=== PATIENT | female | born 2000 | race Caucasian/White ===

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

== ENCOUNTER 2019-11-08 10:16 | Emergency (ER) | payer MEDICAID, OTHER ==
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
[2019-11-08] MEDS ORDERED: LACTATED RINGERS 1,000 ML IVS ONE (11:03)
--- NOTE | 2019-11-08 11:52 | US ---
EXAM DESCRIPTION: Abdomen,Complete CLINICAL HISTORY: 19 years Female, recent splenectomy, now with abd pain. COMPARISON: None. TECHNIQUE: Multiple sonographic images of the abdomen with color Doppler analysis. FINDINGS: Liver: Liver measures 15.8 cm. Main portal vein is patent with appropriate directional flow. Biliary Tree: Gallbladder surgically absent. No intrahepatic biliary dilatation. Common bile duct diameter of 5 mm. Pancreas: Normal visualized portions of the pancreas. Spleen: Not visualized possibly consistent with patient's history of prior splenectomy Kidneys: Normal size and location without hydronephrosis. Vasculature: Unremarkable upper abdominal aorta and IVC. Abdominal cavity: No ascites. IMPRESSION: 1. No acute sonographic abnormality of the abdomen. 2. Nonvisualized spleen consistent with prior splenectomy. 3. Cholecystectomy. Electronically signed by: Delano Vanegas MD 11/08/2019 11:51 AM CDT
[2019-11-08] MEDS ORDERED: ALUM & MAG HYDROX-SIMETHICONE 30 ML, LIDOCAINE VISCOUS 2% 15 ML PO ONE ×2 (12:43)
[2019-11-08] MEDS ORDERED: FAMOTIDINE IV PREMIX 20 MG in PREMIX BAG 1 BAG IVPB ONE (12:44)
[2019-11-08] MEDS ORDERED: ALUM & MAG HYDROX-SIMETHICONE 30 ML UD ONE (12:51)
[2019-11-08] MEDS ORDERED: LIDOCAINE HCL 2% (MOUTH-THROAT) 15 ML UD ONE (12:51)
[2019-11-08] MEDS ORDERED: FAMOTIDINE IV PREMIX 50 ML IVPB ONE (12:51)
[2019-11-08 14:19] VITALS: BP 109/73; TEMP 98.9; O2SAT 98
== END 2019-11-08 14:10 | disposition home or self-care (01) ==
LOC: ER 10:16
DX: O26.892 Other specified pregnancy related conditions, second trimester (principal); R10.11 Right upper quadrant pain; R42 Dizziness and giddiness; Z3A.20 20 weeks gestation of pregnancy
CPT/HCPCS: 36415; 76700; 80053; 81001; 85025; 87086; J3490; J7120